=== PATIENT | female | born 1980 | race Caucasian/White ===

== ENCOUNTER 2019-07-19 17:41 | Emergency (ER) | payer MEDICAID ==
[~2019-07-19] VITALS: Ht 152.4 cm; Wt 63.5 kg
--- NOTE | 2019-07-19 17:42 | NUR ---
Patient to ER bed h1 for evaluation. Side rails up.
[2019-07-19 17:46] VITALS: BP_SYST 115
--- NOTE | 2019-07-19 17:48 | NUR ---
Pt AAOx4 ambulated into ED escorted by law enforcement for medical clearance prior to booking. Pt reports shakiness. Pt took insulin prior to arrival. Accucheck 107. Skin pink dry and warm, breathing even and unlabored. No other injuries/complaints per pt/noted. Will continue to monitor.
--- NOTE | 2019-07-19 17:50 | NUR ---
ER Dr. Caballero at bedside examining patient.
--- NOTE | 2019-07-19 17:56 | NUR ---
Accrashid 107. Dr. Caballero notified.
[2019-07-19 18:12] VITALS: BP_SYST 115
--- NOTE | 2019-07-19 18:12 | NUR ---
Patient given written and verbal discharge instructions and verbalizes understanding. ER MD Caballero discussed with patient the results and treatment provided. Patient in stable condition. ID arm band removed. No Rx given. Patient educated on pain management and to follow up with PMD. Pain Scale 0. Opportunity for questions provided and answered. Medication side effect fact sheet provided.
== END 2019-07-19 18:12 ==
LOC: SED 17:41
DX: Z02.89 Encounter for other administrative examinations (principal); E11.9 Type 2 diabetes mellitus without complications; Z88.5 Allergy status to narcotic agent; Z91.040 Latex allergy status; Z88.8 Allergy status to other drugs, medicaments and biological substances; Z90.49 Acquired absence of other specified parts of digestive tract
CPT/HCPCS: 99283